=== PATIENT | male | born 1970 | race Caucasian/White ===

== ENCOUNTER 2023-07-21 12:09 | Observation (INO) | payer BC ==
[2023-07-21 12:43] LABS: BASOPHILS ABSOLUTE AUTO 0.05 K/uL (0.00-0.20); BASOPHILS PERCENT AUTO 0.4 % (0.0-1.0); EOSINOPHILS ABSOLUTE AUTO 0.05 K/uL (0.00-0.45); EOSINOPHILS PERCENT AUTO 0.4 % (0.0-6.0); HEMATOCRIT 45.1 % (42.0-52.0); HEMOGLOBIN 15.8 g/dL (14.0-18.0); IMMATURE GRAN ABSOLUTE AUTO 0.05 K/uL (0.00-0.05); IMMATURE GRAN PERCENT AUTO 0.4 % (0.0-0.4); LYMPHOCYTES ABSOLUTE AUTO 1.23 K/uL (1.00-4.80); LYMPHOCYTES PERCENT AUTO 10.8 % (24.0-44.0); MEAN CORPUSCULAR HEMOGLOBIN 30.7 pg (28.0-32.0); MEAN CORPUSCULAR VOLUME 87.6 fL (83.0-99.0); MEAN PLATELET VOLUME 9.5 fL (9.4-12.4); MONOCYTES ABSOLUTE AUTO 0.68 K/uL (0.00-0.80); NEUTROPHILS ABSOLUTE AUTO 9.32 K/uL (1.80-7.70); PLATELET COUNT,PLT 221 K/uL (150-400); RED BLOOD CELL COUNT 5.15 M/uL (4.52-5.90); WHITE BLOOD CELL COUNT,WBC 11.38 K/uL (3.9-11.3)
[2023-07-21] MEDS: Sodium Chloride 0.9% 10 ML Syringe FLUSH PRN (12:45)
[2023-07-21] MEDS: Sodium Chloride 0.9% 2.5 ML Syringe FLUSH PRN (12:45)
[2023-07-21 13:14] LABS: A/G RATIO 1.1 (0.9-1.6); BILIRUBIN TOTAL 1.2 mg/dL (0.2-1.0); CALCIUM 9.8 mg/dL (8.5-10.1); CARBON DIOXIDE,CO2 26.8 mmol/L (21.0-32.0); CREATININE 0.9 mg/dL (0.8-1.3); EST CRCL DRUG DOSING (CG) 100.26 mL/min; POTASSIUM,K 4.1 mmol/L (3.5-5.1); PROTEIN TOTAL,TP 7.5 g/dL (6.4-8.2)
[2023-07-21 13:15] LABS: INR 1.01 (0.86-1.11)
[2023-07-21] MEDS: Iopamidol 755 MG/ML 500 ML Multipack Bottle IVPUSH STA (14:41)
[2023-07-21] MEDS: Sodium Chloride 0.9% 1,000 ML IV ONE ×2 (14:49→16:26)
[2023-07-21] MEDS ORDERED: Naloxone 0.4 MG/ML SDV IVPUSH PRN (16:07)
[2023-07-21] MEDS: Morphine 4 MG/ML Syringe IVPUSH PRN (16:11)
[2023-07-21] MEDS ORDERED: Ondansetron 4 MG/2 ML SDV IVPUSH PRN (19:11)
[2023-07-21] MEDS ORDERED: Polyethylene Glycol 3350 Powder 17 GM Packet PO PRN (19:11)
[2023-07-21] MEDS: Pantoprazole 40 MG in Sodium Chloride 0.9% 10 ML IVPUSH SCH (19:57)
[2023-07-21] MEDS: Enoxaparin 40 MG/0.4 ML Syringe SUBCUT SCH (19:57)
[2023-07-21] MEDS: Sodium Chloride 0.9% 1,000 ML IV SCH (19:58)
[2023-07-21] MEDS: Morphine 2 MG/ML SYRINGE IVPUSH PRN (21:53)
[2023-07-22] MEDS: Acetaminophen 325 MG Tab PO PRN (04:23)
[2023-07-22 06:20] LABS: BASOPHILS ABSOLUTE AUTO 0.04 K/uL (0.00-0.20); BASOPHILS PERCENT AUTO 0.4 % (0.0-1.0); EOSINOPHILS ABSOLUTE AUTO 0.12 K/uL (0.00-0.45); EOSINOPHILS PERCENT AUTO 1.2 % (0.0-6.0); HEMATOCRIT 41.1 % (42.0-52.0); HEMOGLOBIN 14.3 g/dL (14.0-18.0); IMMATURE GRAN ABSOLUTE AUTO 0.03 K/uL (0.00-0.05); IMMATURE GRAN PERCENT AUTO 0.3 % (0.0-0.4); LYMPHOCYTES ABSOLUTE AUTO 1.58 K/uL (1.00-4.80); LYMPHOCYTES PERCENT AUTO 15.8 % (24.0-44.0); MEAN CORPUSCULAR HEMOGLOBIN 30.3 pg (28.0-32.0); MEAN CORPUSCULAR HGB CONC 34.8 g/dL (32.0-36.0); MEAN CORPUSCULAR VOLUME 87.1 fL (83.0-99.0); MEAN PLATELET VOLUME 9.9 fL (9.4-12.4); MONOCYTES ABSOLUTE AUTO 0.94 K/uL (0.00-0.80); MONOCYTES PERCENT AUTO 9.4 % (0.0-8.0); NEUTROPHILS ABSOLUTE AUTO 7.27 K/uL (1.80-7.70); NEUTROPHILS PERCENT AUTO 72.9 % (41.0-71.0); PLATELET COUNT,PLT 224 K/uL (150-400); RED BLOOD CELL COUNT 4.72 M/uL (4.52-5.90); WHITE BLOOD CELL COUNT,WBC 9.98 K/uL (3.9-11.3)
[2023-07-22 06:48] LABS: ALBUMIN 3.2 g/dL (3.4-5.0); BILIRUBIN TOTAL 1.5 mg/dL (0.2-1.0); CALCIUM 8.4 mg/dL (8.5-10.1); CARBON DIOXIDE,CO2 25.5 mmol/L (21.0-32.0); CREATININE 0.7 mg/dL (0.8-1.3); EST CRCL DRUG DOSING (CG) 128.91 mL/min; MAGNESIUM 1.6 mg/dL (1.8-2.4); PHOSPHORUS 3.4 mg/dL (2.6-4.7); POTASSIUM,K 3.7 mmol/L (3.5-5.1); PROTEIN TOTAL,TP 6.3 g/dL (6.4-8.2)
== END 2023-07-22 14:35 | disposition home or self-care (01) ==
LOC: MW.ED 12:09 → MW.MS 16:21
PROVIDERS: ADMIT Internal Medicine; ATTEND Internal Medicine
DX: K85.90 Acute pancreatitis without necrosis or infection, unspecified (principal)
CPT/HCPCS: 36415; 71275; 74174; 76705; 80053; 80061; 83690; 83735; 84100; 84484; 85025; 85610; 93005; 96361; 96374; 99285; A9270; C9113; J1650; J2270; J3490; J7030; Q9967; 93010; 96375; 96376; 99284; G0378